=== PATIENT | female | born 1995 | race Caucasian/White ===

== ENCOUNTER 2017-01-02 10:46 | Emergency (ER) | payer BC ==
[2017-01-02 15:00] VITALS: BP 138/85
== END 2017-01-02 15:41 | disposition home or self-care (01) ==
LOC: ED 10:46
DX: R07.89 Other chest pain (principal); R11.2 Nausea with vomiting, unspecified; R10.30 Lower abdominal pain, unspecified; E03.9 Hypothyroidism, unspecified; Z79.899 Other long term (current) drug therapy